=== PATIENT | female | born 1965 | race Native Hawaiian/Other Pacific Islander ===

== ENCOUNTER 2017-04-16 23:27 | Emergency (ER) | payer OTHER ==
[~2017-04-16] VITALS: Ht 167.6 cm; Wt 61.2 kg
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
--- NOTE | 2017-04-16 23:49 | NUR ---
XRAY AT BEDSIDE.
[2017-04-17] MEDS ORDERED: HYDROCODONE/APAP 5/325MG 1 EACH TABLET PO ONE (00:30)
[2017-04-17] MEDS ORDERED: HYDROCODONE/APAP 5/325MG 1 EACH TABLET ONE (00:38)
--- NOTE | 2017-04-17 00:43 | NUR ---
XRAY AT BEDSIDE.
--- NOTE | 2017-04-17 02:05 | NUR ---
PT PLACED IN L SHOULDER IMMOBILIZER.
--- NOTE | 2017-04-17 02:17 | NUR ---
Patient discharged with family to home in stable condition. Written and verbal after care instructions given, patient instructed not to drive. Patient verbalizes understanding of instruction. Patient ambulatory with a steady gait.
[2017-04-17 02:18] VITALS: BP 108/63
== END 2017-04-17 02:19 | disposition home or self-care (01) ==
LOC: ER 23:33
DX: S42.212A Unspecified displaced fracture of surgical neck of left humerus, initial encounter for closed fracture (principal); V00.211A Fall from ice-skates, initial encounter; Y93.21 Activity, ice skating; Y92.89 Other specified places as the place of occurrence of the external cause; Y99.8 Other external cause status
CPT/HCPCS: 29105; 73030; 73080; 73110; 99284; A4606; Z7610